=== PATIENT | female | born 1985 | race Hispanic/Latino ===

== ENCOUNTER 2022-03-28 18:56 | Emergency (ER) | payer OTHER ==
[2022-03-28] MEDS ORDERED: Acetaminophen 500 MG TAB ONE (20:11)
[2022-03-28] MEDS ORDERED: Ketorolac Tromethamine 30 MG/ML VIAL ONE (20:11)
== END 2022-03-28 20:39 | disposition home or self-care (01) ==
LOC: ERS 18:56
DX: M54.50 Low back pain, unspecified (principal)
CPT/HCPCS: 99283; J1885

== ENCOUNTER 2022-05-27 00:04 | Emergency (ER) | payer OTHER | END 2022-05-27 03:15 | disposition home or self-care (01) | LOC: ERS 00:04 | DX: J06.9 Acute upper respiratory infection, unspecified (principal); Z20.822 Contact with and (suspected) exposure to COVID-19 | CPT/HCPCS: 87804; 99283; U0003; U0005 ==

== ENCOUNTER 2022-08-10 18:27 | Emergency (ER) | payer OTHER ==
[2022-08-10] MEDS ORDERED: Orphenadrine Citrate 60 MG/2 ML VIAL ONE (21:10)
== END 2022-08-10 22:13 | disposition home or self-care (01) ==
LOC: ERS 18:27
DX: M54.50 Low back pain, unspecified (principal)
CPT/HCPCS: 72100; 96372; J2360

== ENCOUNTER 2025-07-14 21:02 | Emergency (ER) | payer OTHER, SELFPAY ==
[2025-07-14] MEDS ORDERED: Acetaminophen 500 MG TAB ONE (22:04)
[2025-07-14] MEDS ORDERED: Ondansetron PF 4 MG/2 ML Vial ONE (22:13)
[2025-07-14 22:34] LABS: #Basophils 0.05 10x3/uL (0.0-0.2); #Eosinophils 0.21 10x3/uL (0.0-0.7); #Monocytes 0.64 10x3/uL (0.11-0.59); #Neutrophils 6.38 10x3/uL (1.40-6.50); %Basophils 0.6 % (0.0-1.0); %Eosinophils 2.5 % (0.0-10.0); %Lymphocytes 13.4 % (21.0-51.0); %Monocytes 7.6 % (0.0-10.0); %Neutrophils 75.8 % (42.0-75.0); Hematocrit 41.6 % (36.0-47.0); Hemoglobin 13.7 g/dL (12.0-16.0); Mean Corpuscular Hemoglobin 28.0 pg (27.0-31.0); Mean Corpuscular Volume 85.1 fL (78.0-98.0); Platelet Count 220 10x3/uL (130-400); Red Blood Cell (RBC) Count 4.89 mill/uL (4.20-5.40); White Blood Cell (WBC) Count 8.42 10x3/uL (4.8-10.8)
[2025-07-14 22:37] LABS: Pregnancy Test - Urine (BHCG) Negative (Negative); Pregu Control Background? CLEAR/WHITE (CLR/WHITE); Pregu Control Bar Appear? YES (CONTROL BAR)
[2025-07-14 22:45] LABS: Bacteria/HPF None Seen HPF (None Seen); CAUTI Indications for Culture Dysuria,urgency,freq; Glucose, Urine (Dipstick) Normal (Negative); Leukocyte Negative Leu/uL (Negative); Protein, Urine (Dipstick) Negative (Neg-Trace); RBC/HPF 0-3 HPF (0-3); Specific Gravity, Urine 1.005 (1.002-1.036); WBC/HPF 0-3 HPF (0-3)
[2025-07-14 22:50] LABS: Urine Culture Reflex No No
[2025-07-14 22:52] LABS: ALT (SGPT) 35 U/L (Less than 34); AST (SGOT) 37 U/L (11-34); Albumin 4.2 g/dL (3.1-4.5); Alkaline Phosphatase 82 U/L (40-110); Anion Gap 14 mmol/L (10-20); BUN (Urea Nitrogen) 4 mg/dL (7.0-18.7); Bilirubin, Total 0.4 mg/dL (0.3-1.2); Calc. Creatinine Clearance 0 mL/min (70-130); Calcium 9.2 mg/dL (7.8-10.44); Carbon Dioxide 27 mmol/L (22-29); Chloride 104 mmol/L (98-107); Globulin 3.5 g/dL (2.4-3.5); Glucose 96 mg/dL (70-105); Potassium 3.6 mmol/L (3.5-5.1); Sodium 141 mmol/L (136-145)
== END 2025-07-15 00:15 | disposition home or self-care (01) ==
LOC: ERS 21:02
DX: U07.1 COVID-19 (principal); R11.2 Nausea with vomiting, unspecified
CPT/HCPCS: 80053; 81001; 81025; 85025; 87081; 87428; 87430; 96361; 96374; J2405